=== PATIENT | male | born 1995 | race Two or more races ===

== ENCOUNTER 2016-12-04 06:34 | Emergency (ER) | payer SELFPAY ==
--- NOTE | ~2016-12-04 | ER ---
[facility] 21 Y [address] ROOM: [place] [id number] LOCATION: ED ADMIT DATE: 12/04/2016 ER/Outpatient Report DISCHARGE DATE: 12/04/2016 FAMILY PHYSICIAN: Dionisio Sevilla MD ATTENDING PHYSICIAN: Chris Brizuela CHIEF COMPLAINT: Bug bite. HISTORY OF PRESENT ILLNESS: Corbin notes that for the last few days, he has had redness and swelling on the left anterior thigh. He has had some drainage from it centrally. Now the redness is larger and it is more warm. Ice seems to make it feel better. He states he is allergic to penicillin. It is unclear if there is any definite bite, but he is concerned it was possibly a bite. It is itchy and tender. PAST MEDICAL HISTORY: Documented on the record and reviewed by me. SOCIAL HISTORY: Documented on the record and reviewed by me. MEDICATIONS: Documented on the record and reviewed by me. ALLERGIES: DOCUMENTED ON THE RECORD AND REVIEWED BY ME. REVIEW OF SYSTEMS: All systems were reviewed and negative except as noted in the HPI. PHYSICAL EXAMINATION: VITAL SIGNS: Blood pressure 145/75, pulses 90, respiratory rate 17, temperature 98.0, and SpO2 is 96% on room air. Pain is rated at 3/10. GENERAL: An age appropriate male, sitting upright on the exam chair, in no apparent pain or distress. NEUROLOGIC: Awake and alert. GCS is 15. No focal deficits. No asymmetry. HEENT: Normocephalic and atraumatic. Eyes are PERRL. Oropharynx is clear. NECK: Supple. Trachea is midline. CHEST: Even and unlabored respirations. HEART: Regular rate and rhythm. ABDOMEN: Appears benign. BACK: Normal to inspection. EXTREMITIES: Warm and well perfused. No deformities or edema. SKIN: There is an area of approximately 12 cm diameter of erythema well [facility] 21 Y [address] ROOM: [place] [address] LOCATION: ED ADMIT DATE: 12/04/2016 ER/Outpatient Report DISCHARGE DATE: 12/04/2016 FAMILY PHYSICIAN: Dionisio Sevilla MD ATTENDING PHYSICIAN: Chris Brizuela demarcated on the anteromedial aspect of the left thigh. There is some induration centrally. No clear central pocket of fluid. Bedside ultrasound does not reveal any significant subcutaneous fluid collections. LABORATORY DATA AND X-RAYS: None. IMPRESSION: Cellulitis versus recent drained abscess with cellulitis. EMERGENCY DEPARTMENT COURSE: The patient was seen and evaluated as above. There is a discrete area concerning for an infection. There are some characteristics that are concerning for possible MRSA. We will start the patient on Bactrim as he is allergic to penicillins in any case. We will have him follow up with the primary care or return to the ER as needed. Discuss wound care with the patient. He is to return immediately if worsening particularly if antibiotics do not cause significant improvement in 48 hours. If worsening after 24 hours of antibiotics, he needs to be re-evaluated again. All questions were answered, and the patient was discharged in good condition. MD ANNA PRASAD/pawan /[id number] d: 12/04/16 1253 t: 12/06/16 0656, OUTPATIENT REPORT
== END 2016-12-04 07:02 | disposition disaster alternative care site (69) ==
LOC: GMED 06:34
DX: S70.362A Insect bite (nonvenomous), left thigh, initial encounter (principal); Z88.0 Allergy status to penicillin; L53.9 Erythematous condition, unspecified; W57.XXXA Bitten or stung by nonvenomous insect and other nonvenomous arthropods, initial encounter